=== PATIENT | female | born 1995 | race Caucasian/White ===

== ENCOUNTER 2016-11-22 08:33 | Emergency (ER) | payer OTHER ==
[~2016-11-22] VITALS: Ht 165.1 cm; Wt 57.1 kg
[2016-11-22 08:47] VITALS: BP 100/62
[2016-11-22 09:17] LABS: BASOPHIL % 0.4 % (0-2); PLATELET COUNT 221 x10^3mcL (130-400); RED CELL DISTRIBUTION WIDTH 13.3 % (11.5-14.5)
[2016-11-22 09:23] LABS: UA SPECIFIC GRAVITY <=1.005 (1.005-1.035); microscopic required? YES; urine erythrocyte 3+ (NEGATIVE)
== END 2016-11-22 10:32 | disposition home or self-care (01) ==
LOC: ED 08:33
PROVIDERS: Emergency Medicine
DX: O20.0 Threatened abortion (principal); Z3A.01 Less than 8 weeks gestation of pregnancy; N93.9 Abnormal uterine and vaginal bleeding, unspecified

== ENCOUNTER 2016-12-24 05:32 | Inpatient (IN) | payer OTHER ==
[~2016-12-24] VITALS: Ht 154.9 cm; Wt 56.0 kg
[2016-12-24 06:58] LABS: BASOPHIL % 0.6 % (0-2); PLATELET COUNT 198 x10^3mcL (130-400); RED CELL DISTRIBUTION WIDTH 13.3 % (11.5-14.5)
[2016-12-24 10:53] VITALS: BP 95/60
[2016-12-24 11:08] LABS: T3 TOTAL 1.42 ng/mL
[2016-12-24 11:12] LABS: ALKALINE PHOSPHATASE 63 U/L (46-116); ALT/SGPT 13 U/L (14-59); AST/SGOT 14 U/L (15-37); BILIRUBIN TOTAL 0.9 mg/dL (0.20-1.00); CALCIUM 8.8 mg/dL (8.5-10.1); CARBON DIOXIDE 24.7 mmol/L (21-32); CHLORIDE SERUM 104 mmol/L (98-107); CHOLESTEROL 176 mg/dL (<200); CREATININE SERUM 0.6 mg/dL (0.6-1.0); GFR1 > 60 mL/min; GLUCOSE SERUM 80 mg/dL (74-106); LIPASE 67 IU/L (73-393); PHOSPHOROUS 3.7 mg/dL (2.5-4.9); POTASSIUM SERUM 3.7 mmol/L (3.5-5.1); SODIUM SERUM 140 mmol/L (136-145); TOTAL PROTEIN, SERUM 6.9 g/dL (6.4-8.2); TRIGLYCERIDES 73 mg/dL (<150)
[2016-12-24 11:14] LABS: ALBUMIN 3.3 g/dL (3.4-5.0); AMYLASE 24 U/L (25-115); CHOLESTEROL/HDL RATIO 1.9; HDL CHOLESTEROL 93 mg/dL (40-60)
[2016-12-24 11:42] LABS: FREE T4 0.89 ng/dL (0.76-1.46); T4(THYROXINE) 9.9 ug/dL (4.7-13.3)
[2016-12-24 11:47] LABS: BASOPHIL % 0.6 % (0-2); PLATELET COUNT 187 x10^3mcL (130-400); RED CELL DISTRIBUTION WIDTH 13.6 % (11.5-14.5)
[2016-12-24 17:21] VITALS: BP 90/55
[2016-12-24 18:21] LABS: BASOPHIL % 0.1 % (0-2); PLATELET COUNT 197 x10^3mcL (130-400); RED CELL DISTRIBUTION WIDTH 13.3 % (11.5-14.5)
[2016-12-24 20:14] LABS: UA SPECIFIC GRAVITY 1.015 (1.005-1.035); microscopic required? YES; urine erythrocyte 3+ (NEGATIVE)
[2016-12-24 20:33] LABS: AMPHETAMINE QUAL UR NONE DETECTED (NEG <=1000)
[2016-12-24 21:30] VITALS: BP 101/48
[2016-12-25 05:58] VITALS: BP 91/65
[2016-12-25 06:52] LABS: BASOPHIL % 0.2 % (0-2); PLATELET COUNT 231 x10^3mcL (130-400); RED CELL DISTRIBUTION WIDTH 13.6 % (11.5-14.5)
[2016-12-25 07:20] LABS: ALBUMIN 3.5 g/dL (3.4-5.0); CALCIUM 9.1 mg/dL (8.5-10.1); CARBON DIOXIDE 25.6 mmol/L (21-32); CHLORIDE SERUM 106 mmol/L (98-107); CREATININE SERUM 0.6 mg/dL (0.6-1.0); GFR1 > 60 mL/min; GLUCOSE SERUM 87 mg/dL (74-106); SODIUM SERUM 142 mmol/L (136-145)
[2016-12-25] MEDS ORDERED: FER300 PO (14:55)
[2016-12-25] MEDS ORDERED: NORCO1 TA2 PO (14:55)
[2016-12-25 15:00] VITALS: BP 96/58
[2016-12-25 15:11] VITALS: BP 91/65
[2016-12-25 15:26] VITALS: BP 96/58
== END 2016-12-25 17:50 | disposition home or self-care (01) | DRG 544 ==
LOC: ED 05:32 → DU 08:33 → MU 08:33 → DU 10:54 → MU 12-25 07:48
PROVIDERS: Emergency Medicine; Obstetrics & Gynecology; ADMIT Family Medicine
PROC: 10D17ZZ Extraction of Products of Conception, Retained, Via Natural or Artificial Opening (ICD-10-PCS; principal; 2016-12-24 13:00)
DX: O73.1 Retained portions of placenta and membranes, without hemorrhage (principal); E44.0 Moderate protein-calorie malnutrition; D64.9 Anemia, unspecified; Z68.23 Body mass index [BMI] 23.0-23.9, adult
CPT/HCPCS: 80307; 83880; 84439; 94150; C1758; J0690; J3010; J7030; Q0092

== ENCOUNTER 2017-04-18 16:24 | Emergency (ER) | payer OTHER ==
[~2017-04-18 16:24] MED LIST: FER300 PO; NORCO1 TA2 PO
[2017-04-18 18:20] VITALS: BP 114/68
== END 2017-04-18 18:20 | disposition home or self-care (01) ==
LOC: ED 16:24
DX: R10.2 Pelvic and perineal pain (principal)

== ENCOUNTER 2020-01-09 21:58 | Emergency (ER) | payer MEDICAID ==
[~2020-01-09] VITALS: Ht 160 cm; Wt 64.0 kg
[2020-01-09 22:04] VITALS: Ht 160 cm; Wt 64.0 kg
[2020-01-09 23:29] VITALS: BP 122/81
== END 2020-01-09 23:29 | disposition home or self-care (01) ==
LOC: ED 21:58
DX: R07.89 Other chest pain (principal); Z98.890 Other specified postprocedural states
CPT/HCPCS: Q0092